=== PATIENT | female | born 2000 | race American Indian/Alaskan Native ===

== ENCOUNTER 2021-09-05 17:39 | Emergency (ER) | payer BC ==
[2021-09-05 18:29] VITALS: BP 105/66
--- NOTE | 2021-09-05 19:14 | Emergency Department Report ---
ED General Adult HPI - General Chief complaint: Chest Pain Stated complaint: CHEST PAIN Time Seen by Provider: 09/05/21 18:49 Source: patient Mode of arrival: Ambulatory Limitations: No Limitations - History of Present Illness Initial comments: 21-year-old female presents to the ER today with complaints of chest pain. Patient states that she has been having both left and right-sided anterior chest pain. She states that she has been having pain for about 2 weeks. She went to her primary care doctor 2 weeks ago and she was told likely related to reflux and she was prescribed medication. She states that she does not recall the name of the medication. She has been taking it off and on for the pain. She states that has been an intermittent pain which she describes as burning and sometimes sharp. She states that it is worse when she eats certain foods and it does improve when she takes the reflux medication that was prescribed to her by PCP. She denies any associated cough, shortness of breath, wheezing, nausea, vomiting, abdominal pain, lower extremity swelling or calf pain. Patient states she came in today because she wanted us to check her heart as well as check a checkup for her cholesterol and her appendix she is not having any abdominal pain or pelvic pain. Patient denies tobacco use. She denies any illicit drug use. She denies any alcohol abuse. She denies any known family history of CAD. She denies any history of no risk factors for PE or DVT. Her last menstrual cycle was 2 weeks ago. Complaint: Chest pain -: week(s) (2) Severity scale (0 -10): 6 - Related Data Home Medications Medication Instructions Recorded Confirmed Last Taken No Known Home Medications [No 09/05/21 09/05/21 Unknown Reported Home Medications] Allergies Allergy/AdvReac Type Severity Reaction Status Date / Time No Known Allergies Allergy Verified 09/05/21 19:28 ED Review of Systems ROS: Stated complaint: CHEST PAIN Other details as noted in HPI Comment: All other systems reviewed and negative ENT: denies: ear pain, throat pain Respiratory: denies: cough, shortness of breath, wheezing Cardiovascular: chest pain Gastrointestinal: denies: abdominal pain, nausea, vomiting, diarrhea, constipation, hematemesis, hematochezia Genitourinary: denies: urgency, dysuria, frequency, hematuria, discharge, abnormal menses, dyspareunia Musculoskeletal: denies: back pain, joint swelling, arthralgia Skin: denies: rash, change in color, change in hair/nails, pruritus Neurological: denies: headache, weakness, numbness, paresthesias, confusion, abnormal gait, vertigo Psychiatric: denies: anxiety, depression, auditory hallucinations, visual hallucinations, homicidal thoughts, suicidal thoughts Hematological/Lymphatic: denies: easy bleeding, easy bruising, swollen glands ED Past Medical Hx - Medications Home Medications: Home Medications Medication Instructions Recorded Confirmed Last Taken Type No Known Home Medications [No 09/05/21 09/05/21 Unknown History Reported Home Medications] ED Physical Exam - General Limitations: No Limitations General appearance: alert, in no apparent distress - Head Head exam: Present: atraumatic, normocephalic, normal inspection - Eye Eye exam: Present: normal appearance, PERRL, EOMI Pupils: Present: normal accommodation - Neck Neck exam: Present: normal inspection, full ROM. Absent: meningismus - Respiratory Respiratory exam: Present: normal lung sounds bilaterally. Absent: respiratory distress, wheezes, rales, rhonchi, stridor, chest wall tenderness - Cardiovascular Cardiovascular Exam: Present: regular rate, normal rhythm, normal heart sounds - GI/Abdominal GI/Abdominal exam: Present: soft. Absent: distended, tenderness, guarding, rebound - Neurological Exam Neurological exam: Present: alert, oriented X3, CN II-XII intact, normal gait - Psychiatric Psychiatric exam: Present: normal affect, normal mood - Skin Skin exam: Present: intact ED Course Vital Signs 09/05/21 09/05/21 18:26 19:28 Temperature 98.3 F Pulse Rate 61 Respiratory 18 Rate Blood Pressure 105/66 [Right] O2 Sat by Pulse 100 99 Oximetry ED Medical Decision Making - EKG Data -: EKG Interpreted by Oh EKG shows normal: sinus rhythm Rate: normal (61) No standard instances T wave inversions noted in: v2, v3 - EKG Data Interpretation: no acute changes - Radiology Data Radiology results: report reviewed Patient: MELODY RAMSEY MR#: [id number] : 2000 Acct:[id number] Age/Sex: 21 / F ADM Date: 09/05/21 Loc: ED Attending Dr: Ordering Physician: HARRISON BEARDEN Date of Service: 09/05/21 Procedure(s): XR chest routine 2V Accession Number(s): [id number] cc: HARRISON BEARDEN Fluoro Time In Minutes: CHEST 2 VIEWS INDICATION / CLINICAL INFORMATION: Chest pain. COMPARISON: None available. FINDINGS: SUPPORT DEVICES: None. HEART / MEDIASTINUM: No significant abnormality. LUNGS / PLEURA: No significant pulmonary or pleural abnormality. No pneumothorax. ADDITIONAL FINDINGS: No significant additional findings. IMPRESSION: 1. No acute findings. Signer Name: Michele Falk DO Signed: 09/05/2021 7:54 PM Workstation Name: [id number] Transcribed By: JAMEL Dictated By: MICHELE FALK DO Electronically Authenticated By: MICHELE FALK DO Signed Date/Time: 09/05/211953 DD/ 53 TD/TT: - Medical Decision Making Chest x-ray shows nothing acute. EKG shows no STEMI or significant dysrhythmias. Patient is currently not toxic or ill-appearing and not in any significant distress. Her vital signs are stable. Patient does not have any risk factors for heart disease. She has a PERC score of 0. Symptoms sound similar to that of GERD. I do not suspect unstable angina, NSTEMI, PE, dissection, or any other emergent conditions warranting additional testing or admission at this time. Patient requesting routine testing for cholesterol as well as routine testing to just check appendix but inform patient that we do not do just routine testing in the ER. She also has no abdominal pain to be concerned for appendicitis. Recommend that she follows up with her primary care doctor for any routine testing. In the meantime I recommend that she continue taking her reflux medication was prescribed to her by her PCP and be consistent with it. She will be given food choices to help with reflux disease. She understands to return if her symptoms worsens. Patient was stable at time of discharge. Critical care attestation.: If time is entered above; I have spent that time in minutes in the direct care of this critically ill patient, excluding procedure time. ED Disposition Clinical Impression: Nonspecific chest pain, GERD (gastroesophageal reflux disease) Disposition: HOME / SELF CARE / HOMELESS Is pt being admited?: No Does the pt Need Aspirin: No Condition: Stable Instructions: Food Choices for Gastroesophageal Reflux Disease, Adult, [id number], Nonspecific Chest Pain, Adult, Gastroesophageal Reflux Disease, Adult, [id number] Additional Instructions: I recommend that he continue taking the reflux medication that was prescribed to you by your primary care doctor but you need to be consistent with it and take it daily. A list of food choices that you can eat while you have reflux will be given to you on your discharge instructions. Follow-up with your primary care doctor for your cholesterol testing and any other routine evaluation you may nee d. Return to the ER if your symptoms worsens or changes in any way. Referrals: HENNY QUINTERO MD [Staff Physician] - 3-5 Days Forms: Work/School Release Form(ED) Time of Disposition: 20:13
--- NOTE | 2021-09-05 19:59 | XRay Report ---
CHEST 2 VIEWS INDICATION / CLINICAL INFORMATION: Chest pain. COMPARISON: None available. FINDINGS: SUPPORT DEVICES: None. HEART / MEDIASTINUM: No significant abnormality. LUNGS / PLEURA: No significant pulmonary or pleural abnormality. No pneumothorax. ADDITIONAL FINDINGS: No significant additional findings. IMPRESSION: 1. No acute findings. Signer Name: Michele Baltazar DO Signed: 09/05/2021 7:54 PM Workstation Name: [id number]
--- NOTE | 2021-09-07 14:32 | Electrocardiograph Report ---
[facility] Test Date: 2021-09-05 Test Time: 19:24:31 Pat Name: MELODY RAMSEY Department: Room: Gender: F [employer]: BIJAN : 2000 Requested By: HARRISON BEARDEN Order Number: [id number] Reading MD: Javon Bean Measurements Intervals [place] Rate: 61 P: 41 VA: 150 QRS: 75 QRSD: 74 T: 20 QT: 384 QTc: 388 Interpretive Statements Sinus rhythm Nonspecific T abnormalities, anterior leads No previous ECG available for comparison Electronically Signed On 09-07-2021 14:31:46 EST by Javon Bean
== END 2021-09-05 20:34 | disposition home or self-care (01) ==
LOC: ED 17:39
DX: R07.9 Chest pain, unspecified (principal); K21.9 Gastro-esophageal reflux disease without esophagitis
CPT/HCPCS: 71046; 93005; 93010; 99283

== ENCOUNTER 2021-11-27 13:56 | Emergency (ER) | payer BC ==
[2021-11-27 15:30] VITALS: BP 114/71
--- NOTE | 2021-11-27 16:23 | Emergency Department Report ---
ED Abdominal Pain HPI - General Chief Complaint: Abdominal Pain Stated Complaint: STOMACH/CHEST PAIN LOSS OF APPETITE PUI?: No Time Seen by Provider: 11/27/21 16:21 Source: patient Mode of arrival: Ambulatory Limitations: No Limitations - History of Present Illness Initial Comments: Patient is a 21-year-old female that comes in with her acute on chronic epigastric pain. She has a history of H. pylori. She states she takes a PPI at home. This pain is nothing new. She thought she was supposed to follow-up so she came to the ER. She does not have a GI doctor. Her H. pylori was diagnosed by her PCP. Patient is ambulatory, not ill nontoxic on arrival to fast track. She has no fever or chills. MD Complaint: abdominal pain -: Gradual, month(s) Location: epigastric Radiation: none Severity scale (0 -10): 7 Consistency: intermittent Improves With: nothing Worsens With: nothing - Related Data Home Medications Medication Instructions Recorded Confirmed Last Taken No Known Home Medications [No 09/05/21 09/05/21 Unknown Reported Home Medications] Allergies Allergy/AdvReac Type Severity Reaction Status Date / Time No Known Allergies Allergy Verified 11/27/21 15:30 ED Review of Systems ROS: Stated complaint: STOMACH/CHEST PAIN LOSS OF APPETITE Other details as noted in HPI Comment: All other systems reviewed and negative ED Past Medical Hx - Past Medical History Previous Medical History?: Yes Additional medical history: hyperlipidemia, h pylori - Surgical History Past Surgical History?: No - Family History Family history: no significant - Social History Smoking Status: Never Smoker Substance Use Type: Alcohol - Medications Home Medications: Home Medications Medication Instructions Recorded Confirmed Last Taken Type No Known Home Medications [No 09/05/21 09/05/21 Unknown History Reported Home Medications] ED Physical Exam - General Limitations: No Limitations General appearance: alert, in no apparent distress - Head Head exam: Present: atraumatic, normocephalic - Eye Eye exam: Present: normal appearance - ENT ENT exam: Present: mucous membranes moist - Neck Neck exam: Present: normal inspection - Respiratory Respiratory exam: Present: normal lung sounds bilaterally. Absent: respiratory distress - Cardiovascular Cardiovascular Exam: Present: regular rate, normal rhythm. Absent: systolic murmur, diastolic murmur, rubs, gallop - GI/Abdominal GI/Abdominal exam: Present: soft, normal bowel sounds - Extremities Exam Extremities exam: Present: normal inspection - Back Exam Back exam: Present: normal inspection - Neurological Exam Neurological exam: Present: alert, oriented X3 - Psychiatric Psychiatric exam: Present: normal affect, normal mood - Skin Skin exam: Present: warm, dry, intact, normal color. Absent: rash ED Course Vital Signs 11/27/21 15:27 Temperature 98.2 F Pulse Rate 74 Respiratory 14 Rate Blood Pressure 114/71 [Left] O2 Sat by Pulse 100 Oximetry ED Medical Decision Making - Medical Decision Making Vital Signs 11/27/21 15:27 Temperature 98.2 F Pulse Rate 74 Respiratory 14 Rate Blood Pressure 114/71 [Left] O2 Sat by Pulse 100 Oximetry I have educated the patient about appropriate follow-up with a GI doctor for an endoscopy. She verbalizes understanding. Have encouraged her to take her home PPI daily. I have educated her on diet. I asked her to pay attention to what makes the pain better or worse whether it is food or when her stomach is empty. She verbalizes understanding. Abdominal exam is unremarkable. She has no tenderness on palpation. Vital signs are normal. Patient taking p.o. Patient being discharged home with discharge plan of care including diet, medications, activity and follow-up. - Differential Diagnosis a/c abd pain- hyplori Critical care attestation.: If time is entered above; I have spent that time in minutes in the direct care of this critically ill patient, excluding procedure time. ED Disposition Clinical Impression: Epigastric pain, History of Helicobacter pylori infection Disposition: HOME / SELF CARE / HOMELESS Is pt being admited?: No Does the pt Need Aspirin: No Condition: Stable Instructions: Heartburn, Abdominal Pain (ED), Helicobacter Pylori Infection Additional Instructions: Continue your home medication Follow-up with the GI doctor that I have given you below. He will do an endosco py to evaluate your stomach for ulcers given your history of H. pylori Referrals: MARIELOS NORRIS MD [Staff Physician] - 3-5 Days REA SANTIZO MD [Staff Physician] - 3-5 Days Time of Disposition: 16:22
== END 2021-11-27 19:06 | disposition home or self-care (01) ==
LOC: ED 13:56
DX: R10.13 Epigastric pain (principal); Z86.19 Personal history of other infectious and parasitic diseases; F10.20 Alcohol dependence, uncomplicated
CPT/HCPCS: 99282